=== PATIENT | male | born 1995 | race African-American/Black ===

== ENCOUNTER 2020-02-13 15:37 | Emergency (ER) | payer SELFPAY ==
[2020-02-13 15:45] VITALS: BP 100/68; PULSE 105; TEMP 97.8; BMI 29.2
--- NOTE | 2020-02-13 15:52 | PDOC ---
History of Present Illness - General Chief Complaint: Laceration Stated Complaint: LACERATION Time Seen by Provider: 02/13/20 15:43 History Source: Patient Exam Limitations: No Limitations - History of Present Illness Initial Comments: 02/13/20 16:25 HISTORY OF PRESENT ILLNESS: 24-year-old [id number] male who denies medical history presents emergency department for evaluation of laceration to right hand and wrist after climbing over a chain link fence. Patient reports he scraped his hand on the top of the chain-link fence falling to the ground which was covered in dirt. Patient also with multiple abrasions across his body. Patient reports his last tetanus immunization was within the past 10 years during his most recent incarceration on [facility]. Patient is currently in [facility] custody. No recent travel or sick contacts. PAST MEDICAL HISTORY: Denies past medical history SURGICAL HISTORY: Denies ALLERGIES: No known drug allergies REVIEW OF SYSTEMS General/Constitutional: Denies fever or chills. Denies weakness, weight change. HEENT: Denies change in vision. Denies ear pain or discharge. Denies sore throat. Cardiovascular: Denies chest pain or shortness of breath. Respiratory: Denies cough, wheezing, or hemoptysis. Gastrointestinal: Denies nausea, vomiting, diarrhea or constipation. Denies rectal bleeding. Genitourinary: Denies dysuria, frequency, or change in urination. Musculoskeletal: Denies joint or muscle swelling or pain. Denies neck or back pain. Skin and breasts: See HPI Neurologic: Denies headache, vertigo, loss of consciousness, or loss of sensation. Psychiatric: Denies depression or anxiety. Endocrine: Denies increased thirst. Denies abnormal weight change. Hematologic/Lymphatic: Denies anemia, easy bleeding, or history of blood clots. Allergic/Immunologic: Denies hives or skin allergy. Denies latex allergy. PHYSICAL EXAM General Appearance: Well-appearing, appropriately dressed. No apparent distress, no intoxication. Vascular Pulses: Dorsalis-Pedis (R): 2+, Dorsalis-Pedis (L): 2+ Musculoskeletal/Extremities: Normal inspection. FROM of all extremities, normal capillary refill. Pelvis Stable. No CVA tenderness. No tenderness to extremities, pedal edema, swelling, erythema or deformity. Integumentary: Approximate 1 cm superficial linear laceration present over the lateral wrist near the ulnar head. 1.5 cm superficial linear laceration present to the left palm in line with the third digit. Multiple abrasions noted to right knee, right green and left wrist. Neurovascularly intact. Neurologic: video manager II-XII intact. Fully oriented, alert. Appropriate mood/affect. Motor strength 5/5. No appreciable EOM palsy, facial droop or sensory deficit. Past History - Medical History Allergies/Adverse Reactions: Allergies Allergy/AdvReac Type Severity Reaction Status Date / Time No Known Allergies Allergy Verified 02/13/20 15:41 CVA: No COPD: No CHF: No DVT: No Diabetes: No - Surgical History Gastric Stapling: No - Psycho-Social/Smoking History Smoking History: Current every day smoker Number of Cigarettes Smoked Daily: 30 Information on smoking cessation initiated: No - Substance Abuse Hx (Audit-C & DAST Scrn) How often the patient has a drink containing alcohol: Never Score: In Men: 4 or > Positive; In Women: 3 or > Positive: 0 Screen Result (Pos requires Nsg. Audit-10AR): Negative In the last yr the pt used illegal drug/Rx for NonMed reason: No Score: Yes response is considered Positive: 0 Screen Result (Positive result requires Nsg. DAST-10): Negative *Physical Exam - Vital Signs Last Vital Signs Temp Pulse Resp BP Pulse Ox 97.8 F 105 H 18 100/68 99 02/13/20 15:44 02/13/20 15:44 02/13/20 15:44 02/13/20 15:44 02/13/20 15:44 Procedures - Consent Consent obtained: Verbal, From Patient - Laceration/Wound Repair Left Volar Hand Wound Length: to 2.5 cm Wound Explored: clean Wound's Depth, Shape: superficial Irrigated w/ Saline: Yes Betadine Prep: Yes Anesthesia: 2% Lidocaine Amount of Anesthetic (ccs): 4 Wound Debrided: moderate Wound Repaired With: Sutures Suture Size/Type: 5:0 Number of Sutures: 3 Layer Closure: No Sterile Dressing Applied: Yes Splint Applied: No Progress: 02/13/20 16:22 Patient tolerated well Left Lateral Wrist Wound Length: to 2.5 cm Wound Explored: clean Wound's Depth, Shape: superficial Irrigated w/ Saline: Yes Betadine Prep: Yes Anesthesia: 2% Lidocaine Amount of Anesthetic (ccs): 2 Wound Debrided: minimal Wound Repaired With: Sutures Suture Size/Type: 5:0 Number of Sutures: 2 Layer Closure: No Sterile Dressing Applied: Yes Splint Applied: No Progress: 02/13/20 16:22 Patient tolerated well Medical Decision Making - Medical Decision Making 02/13/20 16:23 A/P: 24-year-old male with lacerations to left palm, left wrist and also with abrasions to multiple sites notable on the right knee and green Approximate 1 cm superficial linear laceration present to the left wrist over the ulnar head Approximate 1.5 cm superficial linear laceration present to the palmar surface of the left hand inferior to the third digit Multiple abrasions noted to right knee, right green and left hand Laceration repair-see procedure note for details Boostrix is deferred as patient reports he received his last tetanus immunization during incarceration at [facility] patient did not give a specific date but reports it was within the last 10 years Discharge to [facility] custody I discussed the physical exam findings, ancillary test results and final diagnoses with the patient. I answered all of the patient's questions. The patient was satisfied with the care received and felt comfortable with the discharge plan and treatment plan. The patient will call their primary care p hysician within 24 hours to arrange follow-up and will return to the Emergency Department with any new, persistent or worsening symptoms. Portions of this note have been documented using voice recognition software. As a result, errors may occur in the store stocker process. Effort has been made to correct all grammatical and store stocker error, but some may have been missed which may produce sporadic inaccurate store stocker or nonsensical phrases. Discharge - Discharge Information Problems reviewed: Yes Clinical Impression/Diagnosis: Abrasions of multiple sites Laceration of wrist, left Qualifiers: Encounter type: initial encounter Qualified Code(s): S61.512A - Laceration without foreign body of left wrist, initial encounter Laceration of left palm Qualifiers: Encounter type: initial encounter Qualified Code(s): S61.412A - Laceration without foreign body of left hand, initial encounter Condition: Stable Disposition: HOME - Admission No - Follow up/Referral - Patient Discharge Instructions Patient Printed Discharge Instructions: DI for Laceration Repair Additional Instructions: Patient is medically stable for confinement. Keep wound clean and dry Avoid strenuous activity/exercise to create a hot or sweaty environment until sutures are removed Reapply bacitracin ointment 2 times a day until sutures are removed Return to emergency Department or private physician in 7-10 days for suture removal May use Tylenol or Motrin for pain relief Return immediately to emergency department for redness, swelling, pain, or signs of infection - Post Discharge Activity
== END 2020-02-13 16:38 | disposition home or self-care (01) ==
LOC: JERFT 15:37
PROC: 0HQWXZZ Repair Right Nipple, External Approach (ICD-10-PCS; principal; 2020-02-13)
PROC: 0HQGXZZ Repair Left Hand Skin, External Approach (ICD-10-PCS; 2020-02-13)
DX: S61.512A Laceration without foreign body of left wrist, initial encounter (principal); S61.412A Laceration without foreign body of left hand, initial encounter
CPT/HCPCS: 99283-25